=== PATIENT | male | born 1980 | race Hispanic/Latino ===

== ENCOUNTER 2024-08-04 10:21 | Emergency (ER) | payer BC, SELFPAY ==
[2024-08-04] MEDS ORDERED: Dexamethasone 10 MG/ML VIAL ONE (11:33)
[2024-08-04] MEDS ORDERED: HYDROcodone/Acetaminophen 10/325 mg Tablet ONE (11:33)
[2024-08-04] MEDS ORDERED: Orphenadrine Citrate 60 MG/2 ML VIAL ONE (11:33)
== END 2024-08-04 12:49 | disposition home or self-care (01) ==
LOC: ERS 10:21
DX: M54.50 Low back pain, unspecified (principal); M46.1 Sacroiliitis, not elsewhere classified
CPT/HCPCS: 96372; 99282; J1100; J2360

== ENCOUNTER 2024-08-09 02:21 | Emergency (ER) | payer SELFPAY ==
[2024-08-09] MEDS ORDERED: Ketorolac Tromethamine 30 MG (1 mL) VIAL ONE (03:34)
== END 2024-08-09 04:25 | disposition home or self-care (01) ==
LOC: ERS 02:21
DX: M54.42 Lumbago with sciatica, left side (principal)
CPT/HCPCS: 96372; 99283; J1885

== ENCOUNTER 2024-08-09 10:03 | Outpatient (CLI) | payer OTHER | END 2024-08-09 10:04 | disposition home or self-care (01) | LOC: BICRAD 10:03 | PROVIDERS: ATTEND Nurse Practitioner Family | DX: M54.42 Lumbago with sciatica, left side (principal); M47.816 Spondylosis without myelopathy or radiculopathy, lumbar region | CPT/HCPCS: 72100 ==